=== PATIENT | male | born 1985 | race Caucasian/White ===

== ENCOUNTER → 2016-12-25 | Outpatient (CLI) | payer BC ==
--- NOTE | 2016-12-25 14:20 | DIAGNOSTIC IMAGING REPORT ---
CHEST 2 VIEWS ROUTINE HISTORY: SHORTNESS OF BREATH COMPARISON: None. FINDINGS: The cardiac silhouette is enlarged. Low lung volumes. Perihilar interstitial and vascular thickening consistent with mild congestive change. No focal lung consolidations to suggest pneumonia. No pleural effusions. No pneumothorax. IMPRESSION: Cardiomegaly with developing congestive change. Electronically signed by: Mario Walker M.D. 12/25/2016 2:18 PM Dictated Date/Time: 12/25/2016 2:17 PM
== END | disposition home or self-care (01) ==
LOC: C.RAD 13:11
PROVIDERS: ATTEND Family Medicine
DX: R06.02 Shortness of breath (principal); I51.7 Cardiomegaly